=== PATIENT | female | born 1955 | race Caucasian/White ===

== ENCOUNTER 2024-10-24 20:23 | Emergency (ER) | payer MEDICARE, SELFPAY ==
[2024-10-24 20:25] VITALS: BP 153/82; PULSE 82; RESP 18; TEMP 36.4; O2SAT 100; BMI 18.4
[2024-10-24 21:24] VITALS: BP 132/75; PULSE 100; RESP 18; O2SAT 99
[2024-10-24 22:00] VITALS: BP 136/67; PULSE 83; RESP 18; O2SAT 100
--- NOTE | 2024-10-24 22:04 | EX.ED.DYSGE1 ---
HPI History of Present Illness Chief Complaint: Allergic Reaction Informant: patient Narrative Narrative: Patient 68-year-old female from out of town presenting for concern of allergic reaction. Patient states she has had hives in the past since it got so bad that she has had trouble breathing. She does not know if she has ever had epinephrine. She states that earlier today she started having hives and they have progressed. She started have some swelling of her lips. She does not feel short of breath right now. She is complaining of pain in her back and neck and feels that her muscles are tensing up. She took Aleve before coming in with no relief of this. She also took 50 mg of Benadryl multiple times throughout the day with no relief. She denies any nausea or vomiting. Notes that she was recently in [place] and was very busy. She is getting on Wednesday. She is not sure if this could be stress related. She does not have a family doctor but that she lives in the [facility]. No other complaints or concerns at this time [facility] Medical History Marijuana smoker Home Medications ?Medication ?Instructions ?Recorded ?Last Taken ?Type famotidine 20 mg tablet 20 mg PO BID #14 TABLETS 10/24/24 Unknown Rx prednisone 20 mg tablet 40 mg (2 x 20 mg) PO DAILY #10 tabs 10/24/24 Unknown Rx Allergy/AdvReac Type Severity Reaction Status Date / Time mold Allergy Hives Verified 10/24/24 20:24 Surgical History Hx of hernia repair Social History Smoking Status: Current some day smoker tobacco type: smokeless tobacco ROS ROS ED Constitutional Constitutional ED: Denies chills or fever(s) ENT ENT ED: Reports other Details: lip swelling, denies difficulty swallowing ; Denies sore throat Cardiovascular Cardiovascular: Denies chest pain Respiratory/Chest Respiratory/Chest: Denies dyspnea Gastrointestinal Gastrointestinal: Denies abdominal pain, nausea or vomiting Musculoskeletal Musculoskeletal: Reports arthralgias and myalgias Integumentary Reports rash Neurologic Neurologic: Denies headache(s) or weakness EXAM Physical Exam Const Vital Signs: 10/24/24 20:25 10/24/24 21:24 10/24/24 22:00 Temperature 97.5 F L Temperature Source Oral Pulse Rate 82 100 83 Respiratory Rate 18 18 18 Blood Pressure 153/82 H 132/75 H 136/67 H Blood Pressure Mean 105 94 90 Pulse Ox 100 99 100 Oxygen Delivery Method Room Air Room Air Room Air 10/24/24 23:00 Temperature Temperature Source Pulse Rate 84 Respiratory Rate 18 Blood Pressure 130/91 H Blood Pressure Mean 104 Pulse Ox 98 Oxygen Delivery Method Room Air Positive well nourished and well developed General Appearance ED: well developed and NAD HEENT Reports moist mucous membranes HEENT Narrative: Mild edema of the lips. Most pronounced on the right upper lip. No edema of the buccal surfaces or tongue. Normal uvula that is midline. Eyes PERRL and EOMs intact bilaterally Neck supple Neck Narrative: No stridor appreciated Chest Wall inspection of chest normal and palpation of chest normal Resp normal respiratory effort and clear to auscultation bilaterally Auscultation: Negative for rales, rhonchi or wheezes Cardio regular rate and regular rhythm GI normal to inspection, nondistended, normoactive bowel sounds and non-tender Extremity Extremity Narrative: Swelling noted of the left hand. No obvious deformity of the extremities. Normal range of motion. No short arc range of motion of the joints. Neuro oriented x3 Sensorium / Orientation: alert Motor Exam: Negative for general weakness Psych mental status grossly normal Skin Skin Narrative: Scattered urticaria most pronounced on right ear, chin, left wrist/dorsal aspect of the hand, ventral aspect of the right hand, posterior aspect of the left knee and scattered along the back. Also in the bilateral inguinal area. No petechia appreciated. Negative Nikolsky sign. MDM MDM MDM Narrative Medical decision making narrative: Patient evaluated for scattered urticaria and swelling of her lips. She states that she has had allergic reactions in the past. She taken Benadryl at home with no relief. Patient is given IV Pepcid and Solu-Medrol. She is also given dose of 2.5 mg oral diazepam for her muscle spasms in her back that she is reporting. Vital signs stable. Presentation not consistent with anaphylaxis initially has skin involvement and there is no airway compromise. Does not require epinephrine. She is not hypotensive. Patient reevaluated after receiving medications and clinically is improving. She states she still feels like tight her muscles but her urticaria does seem to be improving as well as the swelling of her left hand. Patient be given a dose of Toradol. Is discharged home with prescription for Pepcid and prednisone. Counseled to follow-up with primary care doctor when she returns in case she has some type of autoimmune process that is triggering this is seems atypical for an allergy especially with no known trigger. She verbalized agreement understands plan. Discharged home in stable condition Discharge Plan Triage Chief Complaint: Allergic Reaction ED Provider: Chikis Adams Dx/Rx/DC Orders Clinical Impression: Urticaria, Myalgia Instructions: ED Hives (Adult), ED Myalgias Prescriptions: New prednisone 20 mg tablet 40 mg PO DAILY Qty: 10 0RF famotidine 20 mg tablet 20 mg PO BID Qty: 14 0RF Primary Care Provider: Care Physician,No Primary Referrals: Care Physician,No Primary [Primary Care Provider] - Activity Restrictions/Additional Instructions: Please follow-up with family doctor when you return to [place] for further workup. Return to the ER if you have progression worsening your symptoms or further concerns. Take all medications as prescribed. Print Language: Malian Disposition Disposition: Home, Self Care
[2024-10-24] MEDS: Famotidine 200 MG/20 ML MDV 20 MG in 0.9% Normal Saline (Pres. free 8 ML 300 MG IV (22:22)
[2024-10-24] MEDS: MethylPREDNISolone 125 MG/2 ML Vial IV (22:22)
[2024-10-24] MEDS: diazePAM 5 MG Tablet 2.5 MG PO (22:22)
[2024-10-24 23:00] VITALS: BP 130/91; PULSE 84; RESP 18; O2SAT 98
[2024-10-24 23:19] VITALS: BP 141/64; PULSE 78; RESP 18; TEMP 36.7; O2SAT 100
[2024-10-24] MEDS: Ketorolac 15 MG/ML Vial IV (23:31)
== END 2024-10-24 23:39 | disposition home or self-care (01) ==
PROVIDERS: Emergency Provider Emergency Medicine; Visit Provider Emergency Medicine
DX: L50.9 Urticaria, unspecified (principal); F17.220 Nicotine dependence, chewing tobacco, uncomplicated; M79.18 Myalgia, other site
CPT/HCPCS: 96374; 96375; 99283; A4216